=== PATIENT | female | born 1990 | race Caucasian/White ===

== ENCOUNTER 2020-03-13 11:25 | Emergency (ER) | payer BC, SELFPAY ==
[2020-03-13 11:30] VITALS: BP 103/64; PULSE 87; RESP 18; TEMP 37.8; O2SAT 98; BMI 27.4
--- NOTE | 2020-03-13 11:51 | HMH.EDUTC ---
[facility] [place] Clinical Impression: URI (upper respiratory infection) Qualifiers: URI type: unspecified URI Qualified Code(s): J06.9 - Acute upper respiratory infection, unspecified Disposition: Home, Self-Care Condition on Discharge: Good Instructions: Sore Throat, DI for Fever (Symptom) -- Adult, DI for COVID-19 (Suspected or Confirmed ), Preventing the Spread of Coronavirus Discharge Instructions Additional Instructions: *Monitor Temp, Over the counter Motrin or Tylenol as directed/as needed Tylenol every 4 hours and Motrin every 6 hours (as long as your family doctor has told you that you can take it) for fever or pain. and straight to ER if unable to lower temp less than 101.0 after medication given *Warm salt water gargles may help to soothe the throat *Throat Lozenges *Warm fluids like tea with honey may help to soothe the throat *Sleep elevated *Humidifier/Vaporizer Your throat swab was sent for culture. Those results are typically sent to your primary care. Be sure to follow up in 2-3 days with your family doctor/primary care physician if no improvement so they can review those result and treat if necessary. If you don?t have a primary care doctor, I recommend you get one but in the mean time, you will have to return to a walk in clinic Follow up IMMEDIATELY for new or worsening symptoms or no Noticeable improvement over the next 48-72 hours. 911 for difficulty breathing or swallowing You were tested for today for COVID19 your test result should be back in the next 24-48 hours, you may call to the [facility] to see if your test results are back in the next 48 hours [phone] [facility] hours are 9am-9pm You was given a handout with instructions for Self Quarantine and Self isolation for while you wait on test results and what to do if they are positive If you are positive the Health Dept will be contacting you also Prescriptions: Azithromycin [Z-Jimenez 250mg Tab] 250 mg PO DIRECTED #6 tab Transmission Status: Pending to [id number] Referrals: PCP,No [Primary Care Provider] - As needed Forms: Work/School Release Medical Decision Making - Lazarus Inquiry Pt receiving controlled substance: No Lazarus was queried for this patient: No Vital Signs: 03/13/20 11:30 Temperature 100.0 F H Temperature Source Oral Pulse Rate [Left Brachial] 87 Respiratory Rate 18 Blood Pressure [Left Arm] 103/64 L Blood Pressure Mean [Left Arm] 77 Blood Pressure Source [Left Arm] Automatic Cuff Blood Pressure Position [Left Arm] Sitting 02 Sat by Pulse Oximetry 98 Oxygen Delivery Method Room Air - Lab Data Lab results reviewed: Yes: I reviewed the patient's lab results. Orders (Tests/Meds): ORDERS Category Date Time Status Covid-19 Nasal PCR ([facility]) Routine Lab 03/13/20 11:51 Ordered Medical Decision Narrative: Patient state that she has taken azithromycin before without complications or reactions [facility] [place] HPI - General Stated complaint: Sore throat, body aches Time Seen by Provider: 03/13/20 11:51 Mode of Arrival: Ambulatory Source of Information: Patient Limitations: No Limitations Description of Symptoms (Recalled from Triage Doc. by RN): PATIENT C/O BODY ACHES, SORE THROAT, COUGH, AND BURNING IN CHEST SINCE LAST NIGHT HEENT Symptoms (Recalled from RN notes): Yes Resp Symptoms (Recalled from RN notes): Yes Skin Symptoms (Recalled from RN notes): No MS Symptoms (Recalled from RN notes): No Functional Status (Recalled from RN notes): WNL - History of Present Illness Provider Complaint: Patient state that she hasnt been feeling well for several days state that she has been having nasal congestion and pressure along with sore throat body aches, chills, headache and fever State that today she was having some burning in her throat and chest area when she would cough so she come in to get checked - Related Data Home Medications Medication Instructions Recorded Confirmed lamotrigine 100 mg tablet PO 30 Day
[2020-03-13 12:01] LABS: UTC Strep Screen (Rapid) Negative (Negative)
[2020-03-13 12:02] LABS: UTC Influenza A Antigen Negative (Negative); UTC Influenza B Antigen Negative (Negative)
[2020-03-13 12:04] VITALS: BP 103/64; PULSE 87; RESP 19; TEMP 37.7; O2SAT 98
--- NOTE | 2020-03-13 20:28 | PC.NURSE ---
PT NOTIFIED OF POSITIVE COVID RESULT
== END 2020-03-13 12:08 | disposition home or self-care (01) ==
PROVIDERS: Emergency Provider Nurse Practitioner
DX: U07.1 COVID-19 (principal)
CPT/HCPCS: 87804; 87880; 99202; G0463; U0003

== ENCOUNTER → 2020-12-22 07:37 | Outpatient (CLI) | payer BC, SELFPAY ==
[2020-12-22 07:55] LABS: Basophils % 0.4 % (0.1-2.0); Eosinophils # 0.2 K/mm3 (0.0-0.4); Hematocrit 40.4 % (37.0-47.0); Hemoglobin 13.1 g/dL (12.2-16.2); Lymphocytes # 2.4 K/mm3 (0.7-4.5); Lymphocytes % 38.5 % (10-50); Mean Corpuscular HGB Conc 32.5 g/dL (31.8-35.4); Mean Corpuscular Hemoglobin 30.3 pg (27.0-31.2); Mean Corpuscular Volume 93.2 fl (81-99); Mean Platelet Volume 7.6 fl (7.4-10.4); Monocytes # 0.4 K/mm3 (0.1-1.0); Monocytes % 6.9 % (1.7-9.3); Neutrophils # 3.2 K/mm3 (1.8-7.8); Neutrophils % 51.1 % (37.0-80.0); Platelet Count 329 K/mm3 (142-424); Red Blood Count 4.33 M/mm3 (4.20-5.40); Red Cell Distribution Width 12.5 % (11.5-17.5); White Blood Count 6.3 K/mm3 (4.8-10.8)
[2020-12-22 10:14] LABS: Alanine Aminotransferase 18 U/L (12-78); Albumin Level 3.6 g/dl (3.5-5.0); Albumin/Globulin Ratio 1.4 (1.1-1.8); Alkaline Phosphatase 46 U/L (38-126); Anion Gap 9.1 mEq/L (5-15); Aspartate Amino Transferase 29 U/L (14-36); Bilirubin,Total 0.6 mg/dl (0.2-1.3); Blood Urea Nitrogen 8 mg/dl (7-17); Calcium 8.8 mg/dl (8.4-10.2); Carbon Dioxide 25 mmol/L (22.0-30.0); Chloride 105 mmol/L (98-107); Chol/HDL Ratio 2.6 (1-3.5); Cholesterol 163 mg/dl (140-200); Estimated Glomerular Filt Rate 145 ml/min (>60); GFR (African American) 175 ML/MIN (>60); Globulin 2.6 g/dL (1.3-3.2); Glucose 88 mg/dl (74-100); HDL Cholesterol 63 mg/dl (40-60); Potassium 4.1 mmoL/L (3.5-5.1); Sodium 135 mmol/L (136-145); Total Protein,Serum 6.2 g/dl (6.3-8.2); Triglycerides 54 mg/dl (30-150); VLDL Cholesterol 11 mg/dL (0-40)
[2020-12-22 10:25] LABS: Direct LDL Cholesterol 76.06 mg/dL (100-129)
[2020-12-22 10:44] LABS: Thyroid Stimulating Hormone 2.03 uIU/mL (0.465-4.68)
== END ==
PROVIDERS: Visit Provider Family Medicine
DX: R53.83 Other fatigue (principal); Z13.29 Encounter for screening for other suspected endocrine disorder
CPT/HCPCS: 36415; 80053; 80061; 84443; 85025

== ENCOUNTER → 2021-11-08 16:17 | Outpatient (POV) | payer BC, SELFPAY | PROVIDERS: Visit Provider Dermatology | DX: Z00.00 Encounter for general adult medical examination without abnormal findings (principal) ==

== ENCOUNTER 2022-01-17 11:42 | Emergency (ER) | payer BC, SELFPAY ==
--- NOTE | 2022-01-17 13:21 | EXP.UTC ---
Discharge Plan Disposition Patient Disposition: Home, Self-Care Condition: Good Prescriptions Prescriptions: New oseltamivir [Tamiflu] 75 mg capsule 75 mg PO BID Qty: 10 0RF fffgxafoxebuyga-srbpxnllv-CW [Bromfed DM] 2-30-10 mg/5 mL Syrup 5 ml PO Q6H PRN (Reason: Cough) Qty: 240 0RF ondansetron 4 mg Tablet,Disintegrating 4 mg PO Q8H PRN (Reason: Nausea) Qty: 20 0RF No Action lamotrigine 100 mg tablet PO 30 Days Qty: 44 citalopram 40 mg tablet 40 mg PO citalopram 10 mg tablet 10 mg PO Label Comments: TAKE 1 TABLET BY MOUTH ONCE DAILY AND ADD A HALF TABLET OF 40MG FOR A TOTAL DAILY DOSE OF 30MG buspirone 10 mg tablet 10 mg PO TID PRN Referrals Follow up/Referrals: Obed Lopez MD [Primary Care Provider] - See instructions Activity Restrictions/Add. Instructions Additional Instructions/Restrictions: Drink plenty of fluids. Take tylenol or ibuprofen for pain or fever. Take the medications as directed. Follow up with your regular doctor. GO TO THE ER FOR ANY WORSENING SYMPTOMS Clinical Impressions Clinical Impression: Influenza A Stand Alone Forms Stand Alone Forms: Work/School Release Instructions Patient Instructions: DI for Influenza -- Adult, Oseltamivir Discharge ED Provider: Baltazar Lucero [facility] General Stated complaint: possible flu Time Seen by Provider: 01/17/22 13:21 History of Present Illness Provider Complaint: She states that since yesterday she has had a sore throat, chills, body ache and fever. She has been exposed to the flu. Related Data Home Medications Medication Instructions Recorded Confirmed lamotrigine 100 mg tablet PO 30 days ##44 08/03/17 01/19/21 buspirone 10 mg tablet 10 mg PO TID PRN 12/05/20 01/19/21 citalopram 10 mg tablet 10 mg PO 12/05/20 01/19/21 citalopram 40 mg tablet 40 mg PO 12/05/20 01/19/21 Previous Rx's Medication Instructions Recorded cvudhcutvbicbbd-lxelotmhclrplgz-UV 5 ml PO Q6H PRN Cough #240 mL 01/17/22 2 mg-30 mg-10 mg/5 mL oral syrup (Bromfed DM) ondansetron 4 mg disintegrating 4 mg PO Q8H PRN Nausea #20 tabs 01/17/22 tablet oseltamivir 75 mg capsule (Tamiflu) 75 mg PO BID #10 caps 01/17/22 Allergies Allergy/AdvReac Type Severity Reaction Status Date / Time vancomycin Allergy Mild Verified 01/17/22 13:49 PFSH PFSH Social History Smoking Status: Never smoker alcohol intake: never substance use type: denies use current occupational status: other Travel in the last 8 weeks: None ROS Obtained: Yes All systems reviewed & no additional complaints except as documented Constitutional Constitutional: Reports chills and Reports fever(s) Eyes Eyes: Denies eye discharge ENT Ears, Nose, Mouth, and Throat: Reports as per HPI Cardiovascular Cardiovascular: Denies chest pain Respiratory Respiratory: Denies chest congestion and Reports cough Gastrointestinal Gastrointestingal: Reports nausea; Denies abdominal pain, constipation, cramping, diarrhea or vomiting Musculoskeletal Musculoskeletal: Denies arthralgias Integumentary/Breasts Skin/Breast: Denies rash Neurologic Neurologic: Denies paresthesias Physical Exam General General appearance: alert and in no apparent distress Head Head exam: atraumatic, normocephalic and normal inspection Eye Eye exam: Present normal appearance, PERRL and EOMI ENT ENT exam: Present normal exam, normal oropharynx, mucous membranes moist, TM's normal bilaterally and normal external ear exam Neck Neck exam: Present normal inspection, full ROM and trachea midline; Absent meningismus or lymphadenopathy Chest Chest inspection: Present normal inspection and symmetric chest wall rise; Absent tenderness Respiratory Respiratory exam: Present normal lung sounds bilaterally; Absent respiratory distress Cardiovascular Cardiovascular exam: Present regular rate and normal rh
[2022-01-17 13:36] LABS: UTC Influenza A Antigen Positive (Negative); UTC Influenza B Antigen Negative (Negative)
[2022-01-17 13:46] VITALS: BP 127/76; PULSE 70; RESP 18; TEMP 36.8; O2SAT 96; BMI 28.3
[2022-01-17 13:57] VITALS: BP 127/76; PULSE 70; RESP 18; TEMP 36.8
== END 2022-01-17 14:00 | disposition home or self-care (01) ==
PROVIDERS: Emergency Provider Nurse Practitioner Family; PCP Family Medicine
DX: J10.1 Influenza due to other identified influenza virus with other respiratory manifestations (principal)
CPT/HCPCS: 87804; 99212; G0463

== ENCOUNTER 2022-01-19 19:52 | Emergency (ER) | payer BC, SELFPAY ==
[2022-01-19 19:55] VITALS: BP 143/82; PULSE 102; RESP 19; TEMP 37.2; O2SAT 98; BMI 27.4
[2022-01-19 20:06] LABS: UTC Strep Screen (Rapid) Negative (Negative)
--- NOTE | 2022-01-19 20:09 | EXP.UTC ---
Discharge Plan Disposition Patient Disposition: Home, Self-Care Condition: Good Prescriptions Prescriptions: New methylprednisolone [Medrol (Jimenez)] 4 mg tablets,dose pack See Rx Instructions .Route .COMPLEX 6 Days Qty: 21 0RF Rx Instructions: taper pack; albuterol sulfate [Proventil HFA] 90 mcg/actuation HFA aerosol inhaler 1 inh inhalation Q6H PRN (Reason: shortness of breath or wheezing) Qty: 8.5 0RF No Action lamotrigine 100 mg tablet PO 30 Days Qty: 44 citalopram 40 mg tablet 40 mg PO citalopram 10 mg tablet 10 mg PO Label Comments: TAKE 1 TABLET BY MOUTH ONCE DAILY AND ADD A HALF TABLET OF 40MG FOR A TOTAL DAILY DOSE OF 30MG buspirone 10 mg tablet 10 mg PO TID PRN oseltamivir [Tamiflu] 75 mg capsule 75 mg PO BID Qty: 10 0RF aiwfimlzgxnqxqv-bygduanef-MU [Bromfed DM] 2-30-10 mg/5 mL Syrup 5 ml PO Q6H PRN (Reason: Cough) Qty: 240 0RF ondansetron 4 mg Tablet,Disintegrating 4 mg PO Q8H PRN (Reason: Nausea) Qty: 20 0RF Referrals Follow up/Referrals: Obed Lopez MD [Primary Care Provider] - See instructions Activity Restrictions/Add. Instructions Additional Instructions/Restrictions: *Monitor Temp, Over the counter Motrin or Tylenol as directed/as needed Tylenol every 4 hours and Motrin every 6 hours (as long as your family doctor has told you that you can take it) for fever or pain. and straight to ER if unable to lower temp less than 101.0 after medication given *Warm salt water gargles may help to soothe the throat *Throat Lozenges? *Warm fluids like tea with honey may help to soothe the throat? *Sleep elevated *Humidifier/Vaporizer Your throat swab was sent for culture. Those results are typically sent to your primary care. Be sure to follow up in 2-3 days with your family doctor/primary care physician if no improvement so they can review those result and treat if necessary. If you don?t have a primary care doctor, I recommend you get one but in the mean time, you will have to return to a walk in clinic Follow up IMMEDIATELY for new or worsening symptoms or no Noticeable improvement over the next 48-72 hours. 911 for difficulty breathing or swallowing Clinical Impressions Clinical Impression: URI (upper respiratory infection) Stand Alone Forms Stand Alone Forms: Work/School Release Instructions Patient Instructions: DI for Fever (Symptom) -- Adult, Acetaminophen (Alternative Therapy), Ibuprofen Discharge ED Provider: Dayanna Yun [facility] [place] General Stated complaint: SORE THROAT, COUGH, POSITIVE FOR FLU Mode of Arrival: Ambulatory Source of Information: Patient Limitations: No Limitations Time Seen by Provider: 01/19/22 20:09 Description of Symptoms (Recalled from Triage Doc. by RN): PATIENT C/O CONGESTION, SORE THROAT, AND COUGH. RECENTLY TESTED POSITIVE FOR FLU HEENT Symptoms (Recalled from RN notes): Yes Resp Symptoms (Recalled from RN notes): Yes Skin Symptoms (Recalled from RN notes): No MS Symptoms (Recalled from RN notes): No Functional Status (Recalled from RN notes): WNL History of Present Illness Provider Complaint: Patient states that she was dx with the flu earlier in the week but her throat has got worse and she is coughing up some mucous States that her throat has got worse and she was worried that she may have strep throat on top of the flu Related Data Home Medications Medication Instructions Recorded Confirmed lamotrigine 100 mg tablet PO 30 days ##44 08/03/17 01/19/21 buspirone 10 mg tablet 10 mg PO TID PRN 12/05/20 01/19/21 citalopram 10 mg tablet 10 mg PO 12/05/20 01/19/21 citalopram 40 mg tablet 40 mg PO 12/05/20 01/19/21 Previous Rx's Medication Instructions Recorded wpqrnsbiwgewjbr-hfelowlesyafgzn-IC 5 ml PO Q6H PRN Cough #240 mL 01/17/22 2 mg-30 mg-10 mg/5 mL oral syrup (Bromfed DM) ondansetron 4 mg disintegrating 4 mg PO Q8H PRN Nausea #20 tabs 01/17/22
[2022-01-19 20:24] VITALS: BP 143/82; PULSE 102; RESP 19; TEMP 37.2; O2SAT 98
== END 2022-01-19 20:41 | disposition home or self-care (01) ==
PROVIDERS: Emergency Provider Nurse Practitioner; PCP Family Medicine
DX: J06.9 Acute upper respiratory infection, unspecified (principal)
CPT/HCPCS: 87880; 96372; 99212; G0463

== ENCOUNTER 2022-01-20 02:58 | Emergency (ER) | payer BC, SELFPAY ==
--- NOTE | 2022-01-20 02:57 | ECG_ITS ---
APPROVED REPORT Exam: Resting ECG HR:86 bpm ECG Measurements Heart Rate 86 AXES MN 120 P 64 QRSd 71 QRS 78 QT 346 T 51 QTc 390 Conclusion SINUS RHYTHM NORMAL ECG UNCONFIRMED REPORT Electronically signed by : Shayne Kirk MD 01/21/2022 21:17:40
[2022-01-20 02:59] VITALS: BP 143/80; PULSE 86; RESP 16; TEMP 37.2; O2SAT 99; BMI 27.4
--- NOTE | 2022-01-20 03:13 | XR_ITS ---
PROCEDURE INFORMATION: Exam: XR Chest Exam date and time: 01/20/2022 3:34 AM Age: 31 years old Clinical indication: Other: Epigastric pain TECHNIQUE: Imaging protocol: Radiologic exam of the chest. Views: 2 views. COMPARISON: No relevant prior studies available. FINDINGS: Lungs: No consolidation. Pleural spaces: No significant pleural effusion. No pneumothorax. Heart/Mediastinum: No cardiomegaly. Bones/joints: No displaced fracture. Soft tissues: Unremarkable. IMPRESSION: No definite acute cardiopulmonary disease.
--- NOTE | 2022-01-20 03:18 | HMH.EDABDPAI ---
Discharge Plan Disposition Patient Disposition: Home, Self-Care Chief Complaint: Abdominal Pain Prescriptions Prescriptions: No Action lamotrigine 100 mg tablet 100 mg PO DAILY 30 Days Qty: 44 buspirone 10 mg tablet 10 mg PO TID Clinical Impressions Clinical Impression: Influenza A, Abdominal pain Instructions Patient Instructions: DI for Acute Abdominal Pain Discharge ED Provider: Paco Olmedo Abdominal Pain HPI General Chief Complaint: Abdominal Pain Stated Complaint: Uppergastric pain Time Seen by Provider: 01/20/22 03:18 Mode of Arrival: Ambulatory Source of Information: Patient and Medical Record Limitations: No Limitations Description of Symptoms (Recalled from ER Triage Doc. by RN): pt reports that she is having epigastric pain that radiates up to the middle of her back and wraps around under her rib cage the pt states its a stabbing pain 10/12 History of Present Illness HPI narrative: acute upper abd pain with rad to back which started tonight - recent dx of flu - MD complaint: abdominal pain Onset (ago): hour(s) Consistency: intermittent Location: epigastric Severity: moderate Quality: sharp Radiation: back Associated symptoms: denies other symptoms Related Data Home Medications Medication Instructions Recorded Confirmed lamotrigine 100 mg tablet 100 mg PO DAILY Anxiety 30 days 08/03/17 01/20/22 ##44 buspirone 10 mg tablet 10 mg PO TID Anxiety 12/05/20 01/20/22 Allergies Allergy/AdvReac Type Severity Reaction Status Date / Time vancomycin Allergy Mild Verified 01/17/22 13:49 PFSH [facility] Medical History (Updated 01/20/22 @ 05:03 by Paco Olmedo MD) No significant past medical history Social History (Updated 01/19/22 @ 20:05 by Fabiana العراقي RN) Smoking Status: Former smoker alcohol intake: never substance use type: denies use current occupational status: other Travel in the last 8 weeks: None ROS Obtained: Yes All systems reviewed & no additional complaints except as documented Physical Exam General General appearance: alert Head Head exam: normocephalic Eye Eye exam: Present PERRL and EOMI ENT ENT exam: Present mucous membranes moist Neck Neck exam: Present trachea midline Respiratory Respiratory exam: Present normal lung sounds bilaterally; Absent respiratory distress Cardiovascular Cardiovascular exam: Present regular rate Abdominal Exam Abdominal exam: Present soft and tenderness; Absent guarding or rebound Abdominal tenderness: Present epigastrium and moderate Extremities Exam Extremities exam: Present full ROM Neurological Exam Neurological exam: Present alert, oriented X3 and CN II-XII intact Psychiatric Psychiatric exam: Present normal affect Skin Skin exam: Absent rash Medical Decision Making Medical Records Medical records reviewed: Yes I reviewed the patient's medical records. Lazarus Inquiry Pt receiving controlled substance: No Vital Signs: 01/20/22 02:59 01/20/22 03:30 01/20/22 04:00 Temperature 99 F Temperature Source Oral Pulse Rate 75 74 Pulse Rate [Left Brachial] 86 Respiratory Rate 16 Blood Pressure 116/75 109/70 L Blood Pressure [Right Arm] 143/80 H Blood Pressure Mean [Right Arm] 101 02 Sat by Pulse Oximetry 99 96 99 Oxygen Delivery Method Room Air Room Air Room Air Lab Data Lab results reviewed: Yes I reviewed the patient's lab results. Lab Results 01/20/22 03:00: WBC 6.4, RBC 4.70, Hgb 14.0, Hct 42.3, MCV 90.1, MCH 29.8, MCHC 33.1, RDW 13.2, Plt Count 338, MPV 8.7, Neut % (Auto) 81.6 H, Lymph % (Auto) 16.1, [place] % (Auto) 1.8, Eos % (Auto) 0.1, Baso % (Auto) 0.4, Neut # (Auto) 5.2, Lymph # (Auto) 1.0, [place] # (Auto) 0.1, Eos # (Auto) 0.0, Baso # (Auto) 0.0 01/20/22 03:00: Amylase 62, Lipase 97 01/20/22 03:00: Sodium 140, Potassium 3.5, Chloride 101, Carbon Dioxide 28, Anion Gap 14.5, BUN 5 L, Creatinine 0.50 L, Estimated Creat Clear 187, Estimated GFR 144, Est GFR (Afric
[2022-01-20 03:29] LABS: Microscopic, Urine URINE MICROSCOPIC (MICROSCOPIC)
[2022-01-20 03:30] VITALS: BP 116/75; PULSE 75; O2SAT 96
[2022-01-20 03:33] LABS: Appearance,Urine CLEAR (Clear); Bilirubin,Urine Negative (Negative); Blood, Urine Negative (Negative); Color,Urine YELLOW (Yellow); Glucose,Urine (UA) Negative (Negative); Ketones,Urine Negative (Negative); Leukocyte Esterase,Urine Negative (Negative); Nitrate,Urine Negative (Negative); Protein,Urine Negative (Negative); Specific Gravity, Urine 1.015 (1.005-1.030); Urobilinogen,Urine 0.2 EU/dl (0.2)
[2022-01-20 03:34] LABS: Basophils % 0.4 % (0.1-2.0); Eosinophils % 0.1 % (0.1-12.0); Hematocrit 42.3 % (37.0-47.0); Lymphocytes % 16.1 % (10-50); Mean Corpuscular HGB Conc 33.1 g/dL (31.8-35.4); Mean Corpuscular Hemoglobin 29.8 pg (27.0-31.2); Mean Corpuscular Volume 90.1 fl (81-99); Mean Platelet Volume 8.7 fl (7.4-10.4); Monocytes # 0.1 K/mm3 (0.1-1.0); Monocytes % 1.8 % (1.7-9.3); Neutrophils # 5.2 K/mm3 (1.8-7.8); Neutrophils % 81.6 % (37.0-80.0); Platelet Count 338 K/mm3 (142-424); Red Cell Distribution Width 13.2 % (11.5-17.5); White Blood Count 6.4 K/mm3 (4.8-10.8)
[2022-01-20 03:35] LABS: Chloride 101 mmol/L (98-107); Potassium 3.5 mmoL/L (3.5-5.1); Sodium 140 mmol/L (136-145)
[2022-01-20 03:35] LABS: Urine Pregnancy, HCG Qual. Negative (Negative)
[2022-01-20 03:37] LABS: Alanine Aminotransferase 48 U/L (12-78); Amylase 62 U/L (30-110); Aspartate Amino Transferase 39 U/L (14-36); Blood Urea Nitrogen 5 mg/dl (7-17); Creatinine Clearance Estimated 187 mL/min (50-200); Estimated Glomerular Filt Rate 144 ml/min (>60); GFR (African American) 174 ML/MIN (>60); Lipase 97 U/L (23-300)
[2022-01-20 03:38] LABS: Albumin Level 4.4 g/dl (3.5-5.0); Albumin/Globulin Ratio 1.4 (1.1-1.8); Alkaline Phosphatase 74 U/L (38-126); Anion Gap 14.5 mEq/L (5-15); Bilirubin,Total 0.4 mg/dl (0.2-1.3); Calcium 9.6 mg/dl (8.4-10.2); Carbon Dioxide 28 mmol/L (22.0-30.0); Globulin 3.1 g/dL (1.3-3.2); Glucose 165 mg/dl (74-100); Total Protein,Serum 7.5 g/dl (6.3-8.2)
--- NOTE | 2022-01-20 03:42 | CT_ITS ---
PROCEDURE INFORMATION: Exam: CT Abdomen And Pelvis With Contrast Exam date and time: 01/20/2022 3:46 AM Age: 31 years old Clinical indication: Abdominal pain; Epigastric; Additional info: Epigastric pain TECHNIQUE: Imaging protocol: Computed tomography of the abdomen and pelvis with contrast. Radiation optimization: All CT scans at this facility use at least one of these dose optimization techniques: automated exposure control; mA and/or kV adjustment per patient size (includes targeted exams where dose is matched to clinical indication); or iterative reconstruction. Contrast material: ISOVUE; Contrast volume: 75 ml; Contrast route: IV; COMPARISON: No relevant prior studies available. FINDINGS: Liver: Unremarkable. Gallbladder and bile ducts: No calcified stones. No ductal dilation. Pancreas: Unremarkable. No ductal dilation. Spleen: No splenomegaly. Adrenal glands: No mass. Kidneys and ureters: Unremarkable. No significant hydronephrosis. Stomach and bowel: Apparent mild mural/fold thickening of several loops of proximal and mid small bowel. No associated inflammatory stranding. Few mildly distended loops of small bowel, likely ileus. Appendix: Normal caliber. No inflammation. Intraperitoneal space: No significant fluid collection. No definite free air. Vasculature: Unremarkable. No aneurysm. Lymph nodes: No pathologically enlarged lymph nodes. Urinary bladder: Unremarkable. Reproductive: Unremarkable as visualized. Bones/joints: Probable bone island. No acute fracture. Soft tissues: Tiny umbilical hernia containing fat. IMPRESSION: Probable mild enteritis. Clinical correlation is needed.
--- NOTE | 2022-01-20 03:42 | PC.NURSE ---
Pt gone to RAD
--- NOTE | 2022-01-20 03:50 | PC.NURSE ---
Pt back from RAD
[2022-01-20 04:00] VITALS: BP 109/70; PULSE 74; O2SAT 99
[2022-01-20 04:03] LABS: Bacteria,Urine 1+ /lpf
--- NOTE | 2022-01-20 04:15 | PC.NURSE ---
Rechecked pt condition. No needs or complaints voiced at this time. Light turned off per pt request.
[2022-01-20 05:04] VITALS: BP 114/66; PULSE 75; RESP 16; TEMP 37; O2SAT 99
== END 2022-01-20 05:09 | disposition home or self-care (01) ==
PROVIDERS: Emergency Provider Emergency Medicine
DX: J10.1 Influenza due to other identified influenza virus with other respiratory manifestations (principal); R10.9 Unspecified abdominal pain
CPT/HCPCS: 71046; 74177; 80053; 81001; 81025; 82150; 83690; 85025; 93005; 96365; 96375; 99285; Q9967

== ENCOUNTER 2023-02-28 16:17 | Emergency (ER) | payer BC, SELFPAY ==
[2023-02-28 16:17] VITALS: BP 116/72; PULSE 78; RESP 19; TEMP 36.8; O2SAT 98; BMI 30.3
--- NOTE | 2023-02-28 17:33 | ED_ITS ---
Discharge Plan Disposition Patient Disposition: Home, Self-Care Condition: Good Prescriptions Prescriptions: No Action lamotrigine 100 mg tablet 100 mg PO DAILY 30 Days Qty: 44 buspirone 10 mg tablet 10 mg PO TID Referrals Follow up/Referrals: Provider,Referral, [Primary Care Provider] - See instructions Activity Restrictions/Add. Instructions Additional Instructions/Restrictions: *Monitor Temp, Over the counter Motrin or Tylenol as directed/as needed Tylenol every 4 hours and Motrin every 6 hours (as long as your family doctor has told you that you can take it) for fever or pain. and straight to ER if unable to lower temp less than 101.0 after medication given *Warm salt water gargles may help to soothe the throat *Throat Lozenges? *Warm fluids like tea with honey may help to soothe the throat? *Sleep elevated *Humidifier/Vaporizer *Flonase 2 sprays in each nostril daily but be aware that it may take 2-3 days before you notice improvement *Bromfed may cause drowsiness. Know how it effects you (your child) before driving, caring for small child, or sending your child to school. Not other antihistamines/allergy medications while taking bromfed Your throat swab was sent for culture. Those results are typically sent to your primary care. Be sure to follow up in 2-3 days with your family docto r/primary care physician if no improvement so they can review those result and treat if necessary. If you don?t have a primary care doctor, I recommend you get one but in the mean time, you will have to return to a walk in clinic Follow up IMMEDIATELY for new or worsening symptoms or no Noticeable improvement over the next 48-72 hours. 911 for difficulty breathing or swallowing Clinical Impressions Clinical Impression: Viral syndrome Stand Alone Forms Stand Alone Forms: Work/School Release Instructions Patient Instructions: DI for Viral Upper Respiratory Infection -- Adult Discharge ED Provider: Dayanna Yun [facility] General Stated complaint: sore throat, body aches Mode of Arrival: Ambulatory Source of Information: Patient Limitations: No Limitations Time Seen by Provider: 02/28/23 17:33 Description of Symptoms (Recalled from Triage Doc. by RN): Patient reports sore throat and body aches since yesterday. HEENT Symptoms (Recalled from RN notes): Yes Resp Symptoms (Recalled from RN notes): No Skin Symptoms (Recalled from RN notes): No MS Symptoms (Recalled from RN notes): No Functional Status (Recalled from RN notes): wnl History of Present Illness Provider Complaint: Patient states that she started yesterday with sore throat and body aches States that several people at work has been sick so today when she wasnt feeling any better she came in to get checked Related Data Home Medications Medication Instructions Recorded Confirmed lamotrigine 100 mg tablet 100 mg PO DAILY Anxiety 30 days 08/03/17 01/20/22 ##44 buspirone 10 mg tablet 10 mg PO TID Anxiety 12/05/20 01/20/22 Allergies Allergy/AdvReac Type Severity Reaction Status Date / Time vancomycin Allergy Mild Verified 01/17/22 13:49 Worker's Comp Is this a Worker's Comp case?: No [facility] Disclaimer: The information contained in this section may have been updated after the patient was seen, as this information can be updated by other users. Medical History (Updated 02/28/23 @ 17:44 by Dayanna Yun APRN) No significant past medical history Social History (Updated 01/19/22 @ 20:05 by Fabiana العراقي RN) Smoking Status: Former smoker alcohol intake: never substance use type: denies use current occupational status: other Travel in the last 8 weeks: None ROS Obtained: Yes All systems reviewed & no additional complaints except as documented and Yes Systems reviewed as appropriate & no additional complaints except as documented Constitutional Constitutional: Reports system reviewed and no additional complaints, except as documented, Reports as per HPI and Reports body ache Eyes Eyes: Reports system reviewed and no additional complaints, except as documented and Reports as per HPI ENT Ears, Nose, Mouth, and Throat: Reports system reviewed and no additional complaints, except as documented, Reports as per HPI and Reports sore throat Cardiovascular Cardiovascular: Reports system reviewed and no additional complaints, except as documented and Reports as per HPI Respiratory Respiratory: Reports system reviewed and no additional complaints, except as documented and Reports as per HPI Gastrointestinal Gastrointestingal: Reports system reviewed and no additional complaints, except as documented and as per HPI Physical Exam General General appearance: alert and in no apparent distress ENT ENT exam: Present mucous membranes moist Expanded ENT Exam Throat exam: Present tonsillar erythema Chest Chest inspection: Present normal inspection and symmetric chest wall rise Respiratory Respiratory exam: Present normal lung sounds bilaterally; Absent respiratory distress or wheezes Cardiovascular Cardiovascular exam: Present regular rate, normal rhythm and normal heart sounds Abdominal Exam Abdominal exam: Present soft and normal bowel sounds; Absent distention or tenderness Neurological Exam Neurological exam: Present alert, oriented X3 and normal gait Medical Decision Making Lazarus Inquiry Pt receiving controlled substance: No Lazarus was queried for this patient: No Vital Signs: 02/28/23 16:17 Temperature 98.3 F Temperature Source Oral Pulse Rate [Radial] 78 Respiratory Rate 19 Blood Pressure [Right Arm] 116/72 Blood Pressure Mean [Right Arm] 86 Blood Pressure Source [Right Arm] Automatic Cuff Blood Pressure Position [Right Arm] Sitting 02 Sat by Pulse Oximetry 98 Oxygen Delivery Method Room Air Lab Data Lab results reviewed: Yes I reviewed the patient's lab results.
[2023-02-28 17:53] LABS: UTC Influenza A Antigen Negative (Negative); UTC Strep Screen (Rapid) Negative (Negative)
[2023-02-28 17:54] LABS: UTC Influenza B Antigen Negative (Negative)
[2023-02-28 18:01] VITALS: BP 116/72; PULSE 78; RESP 19; TEMP 36.8; O2SAT 98
== END 2023-02-28 18:02 | disposition home or self-care (01) ==
PROVIDERS: Emergency Provider Nurse Practitioner
DX: R07.0 Pain in throat (principal); M79.18 Myalgia, other site; B34.9 Viral infection, unspecified; Z87.891 Personal history of nicotine dependence
CPT/HCPCS: 87804; 87880; 99212; 99213; G0463

== ENCOUNTER 2023-06-26 08:15 | Emergency (ER) | payer BC, SELFPAY ==
[2023-06-26 08:25] VITALS: BP 133/69; PULSE 80; RESP 19; TEMP 37.1; O2SAT 98; BMI 28.3
--- NOTE | 2023-06-26 08:56 | ED_ITS ---
Discharge Plan Disposition Patient Disposition: Home, Self-Care Condition: Good Prescriptions Prescriptions: New methylprednisolone [Medrol (Jimenez)] 4 mg tablets,dose pack See Rx Instructions .Route .COMPLEX 6 Days Qty: 21 0RF Rx Instructions: taper pack; amoxicillin-pot clavulanate 875-125 mg Tablet 1 tab PO Q12H Qty: 20 0RF No Action lamotrigine 100 mg tablet 100 mg PO DAILY 30 Days Qty: 44 buspirone 10 mg tablet 10 mg PO TID citalopram 40 mg tablet 40 mg PO DAILY Referrals Follow up/Referrals: Obed Lopez MD [Primary Care Provider] - See instructions Activity Restrictions/Add. Instructions Additional Instructions/Restrictions: *Monitor Temp, Over the counter Motrin or Tylenol as directed/as needed Tylenol every 4 hours and Motrin every 6 hours (as long as your family doctor has told you that you can take it) for fever or pain. and straight to ER if unable to lower temp less than 101.0 after medication given *Warm salt water gargles may help to soothe the throat *Throat Lozenges? *Warm fluids like tea with honey may help to soothe the throat? *Sleep elevated *Humidifier/Vaporizer Take medication as prescribed Your throat swab was sent for culture. Those results are typically sent to your primary care. Be sure to follow up in 2-3 days with your family doctor/primary care physician if no improvement so they can review those result and treat if necessary. If you don?t have a primary care doctor, I recommend you get one but in the mean time, you will have to return to a walk in clinic Follow up IMMEDIATELY for new or worsening symptoms or no Noticeable improvement over the next 48-72 hours. 911 for difficulty breathing or swallowing Clinical Impressions Clinical Impression: Sinusitis Instructions Patient Instructions: DI for Sinusitis, Sinusitis Discharge ED Provider: [place] Yun [facility] [place] Stated complaint: sore throat, sinus pressure, cough Mode of Arrival: Ambulatory Source of Information: Patient Limitations: No Limitations Time Seen by Provider: 06/26/23 08:57 Description of Symptoms (Recalled from Triage Doc. by RN): Pt's symptoms are spre throat, sinus pressure, and congestion. HEENT Symptoms (Recalled from RN notes): Yes Resp Symptoms (Recalled from RN notes): No Skin Symptoms (Recalled from RN notes): No MS Symptoms (Recalled from RN notes): No Functional Status (Recalled from RN notes): n/a History of Present Illness Provider Complaint: Patient states that she has been sick for about a week with sinus congestion and pressure, sore scratchy throat and feeling like it is trying to move into her chest States today she wasnt feeling any better so she came in Related Data Home Medications Medication Instructions Recorded Confirmed lamotrigine 100 mg tablet 100 mg PO DAILY Anxiety 30 days 08/03/17 06/26/23 ##44 buspirone 10 mg tablet 10 mg PO TID Anxiety 12/05/20 06/26/23 citalopram 40 mg tablet 40 mg PO DAILY 06/26/23 06/26/23 Previous Rx's Medication Instructions Recorded amoxicillin 875 mg-potassium 1 tab PO Q12H #20 tabs 06/26/23 clavulanate 125 mg tablet methylprednisolone 4 mg tablets in See Rx Instructions .Route 06/26/23 a dose pack (Medrol (Jimenez)) .COMPLEX 6 days #21 tabs Allergies Allergy/AdvReac Type Severity Reaction Status Date / Time vancomycin Allergy Mild Verified 06/26/23 08:41 Worker's Comp Is this a Worker's Comp case?: No [facility] Disclaimer: The information contained in this section may have been updated after the patient was seen, as this information can be updated by other users. Medical History (Updated 06/26/23 @ 09:09 by Dayanna Yun APRN) No significant past medical history Social History Smoking Status: Former smoker alcohol intake: never substance use type: denies use current occupational status: other Travel in the last 8 weeks: None ROS Obtained: Yes All systems reviewed & no additional complaints except as documented and Yes Systems reviewed as appropriate & no additional complaints except as documented Constitutional Constitutional: Reports system reviewed and no additional complaints, except as documented, Reports as per HPI and Reports headache(s) ENT Ears, Nose, Mouth, and Throat: Reports system reviewed and no additional complaints, except as documented, Reports as per HPI, Reports headache(s), Reports sinus pain, Reports sinus pressure and Reports sore throat Cardiovascular Cardiovascular: Reports system reviewed and no additional complaints, except as documented and Reports as per HPI Respiratory Respiratory: Reports system reviewed and no additional complaints, except as documented, Reports as per HPI and Reports cough Gastrointestinal Gastrointestingal: Reports system reviewed and no additional complaints, except as documented and as per HPI Neurologic Neurologic: Reports headache(s) Physical Exam General General appearance: alert and in no apparent distress ENT ENT exam: Present mucous membranes moist Expanded ENT Exam Nose exam: Present sinus tenderness Throat exam: Present other (Pharyngeal erythema noted with PND) Respiratory Respiratory exam: Present normal lung sounds bilaterally; Absent respiratory distress or wheezes Cardiovascular Cardiovascular exam: Present regular rate, normal rhythm and normal heart sounds Neurological Exam Neurological exam: Present alert, oriented X3 and normal gait Medical Decision Making Lazarus Inquiry Pt receiving controlled substance: No Lazarus was queried for this patient: No Vital Signs: 06/26/23 08:25 Temperature 98.8 F Temperature Source Oral Pulse Rate [Right Radial] 80 Respiratory Rate 19 Blood Pressure [Right Arm] 133/69 Blood Pressure Mean [Right Arm] 90 Blood Pressure Source [Right Arm] Automatic Cuff Blood Pressure Position [Right Arm] Sitting 02 Sat by Pulse Oximetry 98 Oxygen Delivery Method Room Air Lab Data Lab results reviewed: Yes I reviewed the patient's lab results. Medical Decision Narrative: Patient denies
[2023-06-26 09:09] LABS: UTC Strep Screen (Rapid) Negative (Negative)
[2023-06-26 09:23] VITALS: BP 113/69; PULSE 80; RESP 19; TEMP 37.1; O2SAT 98
== END 2023-06-26 09:15 | disposition home or self-care (01) ==
PROVIDERS: Emergency Provider Nurse Practitioner; PCP Family Medicine
DX: J01.90 Acute sinusitis, unspecified (principal); R51.9 Headache, unspecified; R07.0 Pain in throat; R09.81 Nasal congestion
CPT/HCPCS: 87880; 99212; 99214; G0463

== ENCOUNTER 2023-08-07 09:16 | Emergency (ER) | payer BC, SELFPAY ==
[2023-08-07 09:25] VITALS: BP 104/70; PULSE 78; RESP 18; TEMP 37.3; O2SAT 98; BMI 28.3
[2023-08-07 09:36] LABS: Apearance,Urine Clear (Clear); Bilirubin,Urine Negative (Negative); Blood, Urine 2+ (Negative); Color,Urine Yellow (Yellow); Glucose,Urine (UA) Negative (Negative); Ketones,Urine Negative (Negative); Protein,Urine Negative (Negative); UTC Leukocyte Esterase,Urine 1+ (Negative); UTC Nitrate,Urine Negative (Negative); Urobilinogen,Urine 0.2 EU/dl (0.2)
--- NOTE | 2023-08-07 09:42 | ED_ITS ---
Discharge Plan Disposition Patient Disposition: Home, Self-Care Condition: Good Prescriptions Prescriptions: New nitrofurantoin macrocrystal [Macrodantin] 100 mg capsule 100 mg PO Q12H 10 Days Qty: 20 0RF Rx Instructions: must administer with a meal/food phenazopyridine [Pyridium] 100 mg tablet 100 mg PO TID Qty: 6 0RF No Action lamotrigine 100 mg tablet 100 mg PO DAILY 30 Days Qty: 44 buspirone 10 mg tablet 10 mg PO TID citalopram 40 mg tablet 40 mg PO DAILY Referrals Follow up/Referrals: Obed Lopez MD [Primary Care Provider] - See instructions Clinical Impressions Clinical Impression: UTI (urinary tract infection) Qualifiers: Urinary tract infection type: acute cystitis Instructions Patient Instructions: DI for Urinary Tract Infection (UTI) Discharge ED Provider: Anna Smith [facility] General Stated complaint: uti pain Mode of Arrival: Ambulatory Source of Information: Patient Limitations: No Limitations Time Seen by Provider: 08/07/23 09:41 Description of Symptoms (Recalled from Triage Doc. by RN): Pt's symptoms are burning urination, urinary frequency, and pelvic cramping. HEENT Symptoms (Recalled from RN notes): No Resp Symptoms (Recalled from RN notes): No Skin Symptoms (Recalled from RN notes): No MS Symptoms (Recalled from RN notes): No Functional Status (Recalled from RN notes): n/a History of Present Illness Provider Complaint: Pt states that symptoms started last night with burning, frequency, cramping, and urgency. Pt notes that she had blood on the tissue when she wiped. Related Data Home Medications Medication Instructions Recorded Confirmed lamotrigine 100 mg tablet 100 mg PO DAILY Anxiety 30 days 08/03/17 08/07/23 ##44 buspirone 10 mg tablet 10 mg PO TID Anxiety 12/05/20 08/07/23 citalopram 40 mg tablet 40 mg PO DAILY 06/26/23 08/07/23 Previous Rx's Medication Instructions Recorded nitrofurantoin macrocrystal 100 mg 100 mg PO Q12H 10 days #20 caps 08/07/23 capsule (Macrodantin) phenazopyridine 100 mg tablet 100 mg PO TID 6 doses #6 tabs 08/07/23 (Pyridium) Allergies Allergy/AdvReac Type Severity Reaction Status Date / Time vancomycin Allergy Mild Verified 08/07/23 09:32 Worker's Comp Is this a Worker's Comp case?: No [facility] Disclaimer: The information contained in this section may have been updated after the patient was seen, as this information can be updated by other users. Medical History (Updated 08/07/23 @ 09:51 by Anna Smith APRN) No significant past medical history Social History Smoking Status: Former smoker alcohol intake: never substance use type: denies use current occupational status: other Travel in the last 8 weeks: None ROS Obtained: Yes All systems reviewed & no additional complaints except as documented Constitutional Constitutional: Reports system reviewed and no additional complaints, except as documented Eyes Eyes: Reports system reviewed and no additional complaints, except as documented ENT Ears, Nose, Mouth, and Throat: Reports system reviewed and no additional complaints, except as documented Cardiovascular Cardiovascular: Reports system reviewed and no additional complaints, except as documented Respiratory Respiratory: Reports system reviewed and no additional complaints, except as documented Gastrointestinal Gastrointestingal: Reports system reviewed and no additional complaints, except as documented Genitourinary Female Genitourinary: Reports system reviewed and no additional complaints, except as documented, Reports dysuria, Reports pelvic pain, Reports urinary frequency and Reports urinary urgency Musculoskeletal Musculoskeletal: Reports system reviewed and no additional complaints, except as documented Integumentary/Breasts Skin/Breast: Reports system reviewed and no additional complaints, except as documented Neurologic Neurologic: Reports system reviewed and no additional complaints, except as documented Endocrine Endocrine: Reports system reviewed and no additional complaints, except as documented Hematologic/Lymphatic Henatologic/Lymphatic: Reports system reviewed and no additional complaints, except as documented Allergic/Immunologic Allergic/Immunologic: Reports system reviewed and no additional complaints, except as documented Physical Exam General General appearance: alert and in no apparent distress Head Head exam: atraumatic and normocephalic Eye Eye exam: Present normal appearance ENT ENT exam: Present normal exam Neck Neck exam: Present normal inspection Chest Chest inspection: Present normal inspection and symmetric chest wall rise Respiratory Respiratory exam: Present normal lung sounds bilaterally Cardiovascular Cardiovascular exam: Present regular rate and normal rhythm Abdominal Exam Abdominal exam: Present soft and tenderness Abdominal tenderness: Present suprapubic and moderate Extremities Exam Extremities exam: Present normal inspection Back Exam Back exam: Present normal inspection; Absent CVA tenderness (R) or CVA tenderness (L) Neurological Exam Neurological exam: Present alert and oriented X3 Psychiatric Psychiatric exam: Present normal affect and normal mood Skin Skin exam: Present warm, dry and intact Lymphatic Lymphatic Findings: no adenopathy Medical Decision Making Lazarus Inquiry Pt receiving controlled substance: No Lazarus was queried for this patient: No Vital Signs: 08/07/23 09:25 Temperature 99.1 F Temperature Source Oral Pulse Rate [Right Radial] 78 Respiratory Rate 18 Blood Pressure [Right Arm] 104/70 L Blood Pressure Mean [Right Arm] 81 Blood Pressure Source [Right Arm] Automatic Cuff Blood Pressure Position [Right Arm] Sitting 02 Sat by Pulse Oximetry 98 Oxygen Delivery Method Room Air Lab Data Lab results reviewed: Yes I reviewed the patient's lab results. Lab Results 08/07/23 09:30: Urine Color Yellow, Urine Appearance Clear, Urine pH 7.0, Ur Specific [place] 1.010, Urine Protein Negative, Urine Glucose (UA) Negative, Urine Ketones Negative, Urine Blood 2+, Urine Nitrate Negative, Urine Bilirubin Negative, Urine Urobilinogen 0.2, Ur Leukocyte Esterase 1+ A Orders (Tests/Meds): ORDERS Category Date Time Status Urine Culture Stat Micro 08/07/23 09:21 Received
[2023-08-07 09:57] VITALS: BP 104/70; PULSE 78; RESP 18; TEMP 37.3; O2SAT 98
== END 2023-08-07 09:57 | disposition home or self-care (01) ==
PROVIDERS: Emergency Provider Nurse Practitioner Family; PCP Family Medicine
DX: N39.0 Urinary tract infection, site not specified (principal); B96.29 Other Escherichia coli [E. coli] as the cause of diseases classified elsewhere; R10.2 Pelvic and perineal pain; R30.0 Dysuria; R35.0 Frequency of micturition
CPT/HCPCS: 81003; 87086; 87088; 87186; 99212; 99214; G0463